=== PATIENT | female | born 1990 | race Caucasian/White ===

== ENCOUNTER 2016-08-29 15:19 | Inpatient (IN) | payer MEDICAID ==
[~2016-08-29] VITALS: Ht 157.5 cm; Wt 58.2 kg
[2016-08-29 16:09] LABS: HEMATOCRIT 40.9 % (36.0-48.0); HEMOGLOBIN 13.7 g/dL (12-16); MCH 30.9 pg (26.0-34.0); MCHC 33.5 g/dL (31.0-37.0); MCV 92.1 fL (80.0-100.0); MEAN PLATELET VOLUME 9.2 fL (7.4-10.4); PLATELET COUNT 455 10x3/uL (130-400); RBC 4.44 10x6/uL (4.00-5.40); RDW 13.9 % (11.5-14.5); WBC 25.3 10x3/uL (4.8-10.8)
[2016-08-29 16:32] LABS: ALBUMIN 3.9 g/dL (3.4-5.0); ALKALINE PHOSPHATASE 76 U/L (46-116); ALT (SGPT) 15 U/L (10-68); BILIRUBIN - TOTAL 0.32 mg/dL (0.2-1.3); CALC OSMOLALITY 285 mosm/kg (275-300); CALCIUM 9.1 mg/dL (8.5-10.1); CARBON DIOXIDE 21.1 mmol/L (21.0-32.0); CHLORIDE - SERUM 105 mmol/L (98-107); CREATININE - SERUM 0.8 mg/dL (0.6-1.3); POTASSIUM - SERUM 3.9 mmol/L (3.5-5.1); PROTEIN - SERUM 7.8 g/dL (6.4-8.2); SODIUM 142 mmol/L (136-145); UREA NITROGEN 10 mg/dL (7-18); eGFR NON AFRICAN AMERICAN > 90 mL/min (90-120)
[2016-08-29 16:33] LABS: GLUCOSE 177 mg/dL (74-106)
[2016-08-29 16:36] LABS: BASOPHILS 1 % (0.0-2.0); LYMPHOCYTES 7 % (15-50); MONOCYTES 1 % (2-11); NEUTROPHILS 89 % (40-80); PLATELET ESTIMATE INCREASED
[2016-08-29 16:38] LABS: AMYLASE - SERUM 51 U/L (25-115); LIPASE 92 U/L (73-393)
[2016-08-29 16:46] LABS: HCG SERUM NEGATIVE (NEGATIVE)
--- NOTE | 2016-08-29 18:50 | NUR ---
Patient Name: NARESH RICHARDSON Admission Status: ER Accout number: [id number] Admission Date: 08-29-2016 : 1990 Admission Diagnosis: Colitis Attending: CATERINA Current LOS: 1 Anticipated DC Date: 09-01-2016 Planned Disposition: Home or Self Care Primary Insurance: MEDICAID [place] Discharge Planning Comments: Cm met with patient to complete initial discharge planning assessment. Patient gave consent to complete assessment. Patient reports she lives home with her boyfriend. She is independent in her care at home. Patient plans to return to home at time of discharge. She is unsure of dc needs at this time. CM will continue to follow and assist with dc plan/needs. Bottle Booth Attendant: Danielle Irene RN, [facility] [phone] Is the patient Alert and Oriented? Yes 0 * How many steps to enter\exit or inside your home? Five 0 * PCP Dr. Castellon 0 * [place] [facility] [place] * Preadmission Environment Home with Family 0 * ADLs Independent 0 * Equipment None 0 * List name and contact numbers for known caregivers / representatives who currently or will assist patient after discharge: Osei coy - [phone] 0 * Community resources currently utilized None 0 * Additional services required to return to the preadmission environment? No 0 * Can the patient safely return to the preadmission environment? Yes 0 * Has this patient been hospitalized within the prior 30 days at any hospital? No
--- NOTE | 2016-08-29 20:20 | NUR ---
RECIEVED PT TO FLOOR FROM ED VIA WHEELCHAIR. PT IS ALERT AND ORIENTED AND ABLE TO VERBALIZE NEEDS. IV IS PATENT AND SALINE LOC AT THIS TIME. PT IS AMBULATORY BUT WAS INSTRUCTED TO CALL FOR ANY ASSISTANCE NEEDED. PT STATES PAIN IS 10/10. NO NEEDS ARE VERBALIZED AT THIS TIME. WILL CONTINUE TO MONITOR. PT IS ORIENTED TO ROOM AND USE OF CALL LIGHT. SIDE RAILS ARE UP X 2. BED IS IN LOWEST POSITION. CALL LIGHT IS WITHIN REACH.
[2016-08-29 21:00] VITALS: BP 140/88
--- NOTE | 2016-08-29 21:30 | NUR ---
ADMIT ASSESSMENT COMPLETED. IV FLUIDS HUNG PER ORDER. ANTIBIOTIC GIVEN PER ORDER. MORPHINE COMMERCIAL LOAN UNDERWRITER ALSO INITIATED AT THIS TIME FOR PAIN 04/05. NO FURTHER NEEDS AT THIS TIME. WILL MONITOR. SIDE RAILS X 2. BED LOW. CALL LIGHT IN REACH.
[2016-08-29] MEDS ORDERED: MELATONIN 3 MG1 TAB PO (23:24)
[2016-08-29] MEDS ORDERED: ZOFRAN ODT4 MG/UDTAB PO (23:25)
[2016-08-30 00:56] VITALS: BP 140/88; Ht 157.5 cm; Wt 58.2 kg
[2016-08-30 01:00] VITALS: BP 144/72
--- NOTE | 2016-08-30 01:50 | NUR ---
PT IV TO RIGHT AC ACCIDENTALLY PULLED OUT. D/C'D WITH CATHETER TIP INTACT. NEW IV RESITED TO LEFT AC X 3 ATTEMPTS. GOOD BLOOD RETURN. FLUSHES W/O DIFFICUTLY. FLUIDS AND COLOR DEPOSITING MACHINE TENDER HOOKED BACK UP PER ORDER. PT TOLERATED WELL. NO NEEDS VOICED. WILL MONITOR. SIDE RAILS X 2. BED LOW. CALL LIGHT IN REACH.
[2016-08-30 08:40] VITALS: BP 113/68
[2016-08-30 11:45] LABS: APPEARANCE HAZY (CLEAR); BILIRUBIN NEGATIVE (NEGATIVE); COLOR YELLOW (YELLOW); GLUCOSE 100 mg/dL (NEGATIVE); KETONE SMALL mg/dL (NEGATIVE); LEUKOCYTE ESTERASE NEGATIVE (NEGATIVE); NITRITE NEGATIVE (NEGATIVE); PROTEIN NEGATIVE (NEGATIVE); SPECIFIC GRAVITY 1.015 (1.005-1.020); UROBILINOGEN NORMAL (NORMAL)
[2016-08-30 11:51] LABS: UDS - AMPHET NEGATIVE QUAL (NEGATIVE); UDS - BARB POSITIVE QUAL (NEGATIVE); UDS - BENZO POSITIVE QUAL (NEGATIVE); UDS - COCAINE NEGATIVE QUAL (NEGATIVE); UDS - METH NEGATIVE QUAL (NEGATIVE); UDS - OPIATE POSITIVE QUAL (NEGATIVE); UDS - PCP NEGATIVE QUAL (NEGATIVE); UDS - THC POSITIVE QUAL (NEGATIVE)
[2016-08-30 12:23] VITALS: BP 114/71
[2016-08-30 12:38] LABS: BASOPHILS 0.1 % (0.0-2.0); EOSINOPHILS 0.1 % (0-7); HEMATOCRIT 36.4 % (36.0-48.0); HEMOGLOBIN 11.9 g/dL (12-16); IMMATURE GRANULOCYTES 0.3 % (0-5); LYMPHOCYTES 25.2 % (15-50); MCH 29.8 pg (26.0-34.0); MCHC 32.7 g/dL (31.0-37.0); MEAN PLATELET VOLUME 9.3 fL (7.4-10.4); MONOCYTES 7.5 % (2-11); NEUTROPHILS 66.8 % (40-80); PLATELET COUNT 374 10x3/uL (130-400); RDW 13.9 % (11.5-14.5)
[2016-08-30 12:41] LABS: WBC 13.7 10x3/uL (4.8-10.8)
[2016-08-30 13:14] LABS: ALBUMIN 3.3 g/dL (3.4-5.0); ALKALINE PHOSPHATASE 59 U/L (46-116); ALT (SGPT) 15 U/L (10-68); BILIRUBIN - TOTAL 0.55 mg/dL (0.2-1.3); CALC OSMOLALITY 282 mosm/kg (275-300); CALCIUM 8.8 mg/dL (8.5-10.1); CARBON DIOXIDE 24.4 mmol/L (21.0-32.0); CHLORIDE - SERUM 106 mmol/L (98-107); CREATININE - SERUM 0.9 mg/dL (0.6-1.3); GLUCOSE 126 mg/dL (74-106); POTASSIUM - SERUM 3.3 mmol/L (3.5-5.1); PROTEIN - SERUM 6.7 g/dL (6.4-8.2); SODIUM 142 mmol/L (136-145); UREA NITROGEN 8 mg/dL (7-18); eGFR NON AFRICAN AMERICAN 81 mL/min (90-120)
[2016-08-30 13:41] LABS: HEMOGLOBIN A1C 5.5 % (4.8-6.0)
[2016-08-30 16:38] VITALS: BP 111/59
[2016-08-30 21:00] VITALS: BP 107/52
[2016-08-31 01:00] VITALS: BP 115/66
--- NOTE | 2016-08-31 03:46 | NUR ---
PATIENT SITTING UP IN BED, WITH COMPLAINTS OF LOWER ABDOMINAL PAIN, 10/10 ON PAIN SCALE. PATIENT REPOSITIONED, WARM PACK APPLIED TO ABDOMIN, PAIN MEDICATION GIVEN. PATIENT 8/10 PAIN SCALE. BED LOW, SIDE RAILS UP, CONTINUE PLAN OF CARE, CONTINUE TO MONITOR.
[2016-08-31 05:00] VITALS: BP 110/65
[2016-08-31 06:24] LABS: BASOPHILS 0.3 % (0.0-2.0); HEMATOCRIT 35.7 % (36.0-48.0); HEMOGLOBIN 11.8 g/dL (12-16); IMMATURE GRANULOCYTES 0.3 % (0-5); LYMPHOCYTES 18.3 % (15-50); MCH 30.2 pg (26.0-34.0); MCHC 33.1 g/dL (31.0-37.0); MCV 91.3 fL (80.0-100.0); MEAN PLATELET VOLUME 8.9 fL (7.4-10.4); MONOCYTES 6.3 % (2-11); NEUTROPHILS 73.8 % (40-80); PLATELET COUNT 332 10x3/uL (130-400); RBC 3.91 10x6/uL (4.00-5.40); WBC 16.1 10x3/uL (4.8-10.8)
[2016-08-31 06:40] LABS: HCG SERUM NEGATIVE (NEGATIVE)
[2016-08-31 06:51] LABS: ALBUMIN 2.8 g/dL (3.4-5.0); ALKALINE PHOSPHATASE 50 U/L (46-116); ALT (SGPT) 15 U/L (10-68); BILIRUBIN - TOTAL 0.69 mg/dL (0.2-1.3); CALC OSMOLALITY 284 mosm/kg (275-300); CALCIUM 8.6 mg/dL (8.5-10.1); CARBON DIOXIDE 25.3 mmol/L (21.0-32.0); CHLORIDE - SERUM 110 mmol/L (98-107); CREATININE - SERUM 0.8 mg/dL (0.6-1.3); GLUCOSE 117 mg/dL (74-106); POTASSIUM - SERUM 3.1 mmol/L (3.5-5.1); PROTEIN - SERUM 6.2 g/dL (6.4-8.2); SODIUM 144 mmol/L (136-145); eGFR NON AFRICAN AMERICAN > 90 mL/min (90-120)
[2016-08-31 06:52] LABS: UREA NITROGEN 5 mg/dL (7-18)
--- NOTE | 2016-08-31 07:30 | NUR ---
QUIET IN ROOM AT PRESENT N/C VOICED AT PRESENT SPINNING LATHE OPERATOR /IV CONT AT 100CC/HR/IVAC.
[2016-08-31 08:06] LABS: ERYTHROCYTE SEDIMENTATION RATE 11 mm/hr (0-20)
[2016-08-31 08:13] VITALS: BP 109/53
--- NOTE | 2016-08-31 09:00 | NUR ---
MEDS GIVEN ZITA WELL AT PRESENT IV AND FOOD MIXER REPAIRER IN PROGRESS.
--- NOTE | 2016-08-31 10:00 | NUR ---
SHOWER TAKEN ZITA WELL AT PRESENT DENIES ANY NEEDS AT THIS TIME AT PRESENT.
--- NOTE | 2016-08-31 12:00 | NUR ---
AMB IN [facility] ZITA WELL AT PRESENT.
[2016-08-31 12:23] VITALS: BP 101/79
--- NOTE | 2016-08-31 14:46 | NUR ---
QUIET IN ROOM AT PRESENT DENIES ANY NEEDS AT THIS TIME QUIET.
[2016-08-31 15:28] VITALS: BP 104/60
--- NOTE | 2016-08-31 15:35 | NUR ---
QUIET IN ROOM AT PRESENT DENIES ANY NEEDS AT PRESENT.
--- NOTE | 2016-08-31 16:56 | NUR ---
STATUS REMAINS UNCHGD AT PRESENT FINANCIAL PLANNING ASSISTANT IN PROGRESS.
[2016-08-31 19:00] VITALS: BP 119/76
--- NOTE | 2016-08-31 20:00 | NUR ---
ASSESSMENT PER FLOWSHEET. IV PATENT LEFT AC OF D5LR AT 100CC'S/HR SITE CLEAR . PHOTOCOPY OPERATOR OF MORPHINE IN USE WITH SETTINGS AT 1MG Q10MIN W/10MG Q4H L/O DENIES NEES UP AD KORI IN HALLWAYS WITH FAMILY MEMBERS.
--- NOTE | 2016-08-31 21:00 | NUR ---
MEDS GIVEN PER MAR. DENIES NEEDS.
--- NOTE | 2016-09-01 | NUR ---
EYES CLOSED RESPIRATIONS WITH EASE AND UNLABORED.
--- NOTE | 2016-09-01 01:00 | NUR ---
MALE FRIEND AT BEDSIDE. DENIES NEEDS.
--- NOTE | 2016-09-01 02:24 | NUR ---
EYES CLOSED RESPIRATIONS WITH EASE AND UNLABORED.
[2016-09-01 04:00] VITALS: BP 113/70
--- NOTE | 2016-09-01 04:00 | NUR ---
EYES CLOSED RESPIRAIONS WITH EASE AND UNLABORED.
[2016-09-01 06:58] LABS: BASOPHILS 0.7 % (0.0-2.0); EOSINOPHILS 3.2 % (0-7); HEMATOCRIT 32.1 % (36.0-48.0); HEMOGLOBIN 10.5 g/dL (12-16); IMMATURE GRANULOCYTES 0.2 % (0-5); LYMPHOCYTES 50.6 % (15-50); MCHC 32.7 g/dL (31.0-37.0); MCV 91.7 fL (80.0-100.0); MEAN PLATELET VOLUME 9.3 fL (7.4-10.4); MONOCYTES 6.9 % (2-11); NEUTROPHILS 38.4 % (40-80); PLATELET COUNT 356 10x3/uL (130-400); RDW 13.9 % (11.5-14.5)
--- NOTE | 2016-09-01 06:58 | NUR ---
NO CHANGES IN ASSESSMENT.
[2016-09-01 07:06] LABS: ALBUMIN 2.6 g/dL (3.4-5.0); ALKALINE PHOSPHATASE 44 U/L (46-116); ALT (SGPT) 15 U/L (10-68); BILIRUBIN - TOTAL 0.42 mg/dL (0.2-1.3); CALC OSMOLALITY 282 mosm/kg (275-300); CALCIUM 8.1 mg/dL (8.5-10.1); CARBON DIOXIDE 26.2 mmol/L (21.0-32.0); CHLORIDE - SERUM 109 mmol/L (98-107); CREATININE - SERUM 0.7 mg/dL (0.6-1.3); GLUCOSE 105 mg/dL (74-106); PROTEIN - SERUM 5.8 g/dL (6.4-8.2); SODIUM 143 mmol/L (136-145); UREA NITROGEN 6 mg/dL (7-18); eGFR NON AFRICAN AMERICAN > 90 mL/min (90-120)
--- NOTE | 2016-09-01 07:22 | NUR ---
K+=3.0. POTASSIUM 40MEQ IN ORANGE JUICE GIVEN PO PER ELECTROLYTE PROTOCAL.
[2016-09-01 08:13] VITALS: BP 117/66
[2016-09-01] MEDS ORDERED: NICODERM C1 PATCH .2 TRANSDERM (09:50)
[2016-09-01] MEDS ORDERED: PROTONIX40 MG PO (09:51)
[2016-09-01] MEDS ORDERED: HYDROCODON-ACE1 EAC7 PO (09:52)
[2016-09-01] MEDS ORDERED: FLORAJEN3 CAPS460 MG PO (09:52)
[2016-09-01] MEDS ORDERED: LEVAQUIN750 MG PO (09:55)
[2016-09-01] MEDS ORDERED: FLAGYL500 MG PO (09:56)
--- NOTE | 2016-09-01 10:40 | NUR ---
CM REASSESSMENT NOTE: PATIENT IS DISCHARGING HOME TODAY. FRIEND AT BEDSIDE WILL DRIVE PATIENT HOME. PATIENT DENIES HOME HEALTH OR ANY OTHER NEEDS FOR DISCHARGE. CM WILL CONTINUE TO FOLLOW PATIENT WITH D/C NEEDS AND PLANS.
--- NOTE | 2016-09-01 13:02 | NUR ---
LEFT VIA W/C DISCHARGE INSTRUCTIONS GONE OVER WITHG PT DEMONSTRATES UNDERSTANDING AT PRESENT RX GIVEN AT PRESENT.
== END 2016-09-01 13:06 | disposition home or self-care (01) | DRG 103 ==
LOC: D.ER 15:19 → D.MS 18:14
PROVIDERS: Emergency Medicine; Family Medicine Adult Medicine; Internal Medicine Gastroenterology; ADMIT Emergency Medicine
DX: G43.A0 Cyclical vomiting, in migraine, not intractable (principal); F17.203 Nicotine dependence unspecified, with withdrawal; T40.7X5A Adverse effect of cannabis (derivatives), initial encounter; K52.9 Noninfective gastroenteritis and colitis, unspecified; E86.0 Dehydration; E83.42 Hypomagnesemia; E87.6 Hypokalemia; F12.90 Cannabis use, unspecified, uncomplicated

== ENCOUNTER 2017-01-18 13:20 | Emergency (ER) | payer MEDICAID ==
[2016-08-30 00:56] VITALS: BMI 23.4
[~2017-01-18 13:20] MED LIST: FLAGYL500 MG PO; FLORAJEN3 CAPS460 MG PO; HYDROCODON-ACE1 EAC7 PO; LEVAQUIN750 MG PO; MELATONIN 3 MG1 TAB PO; NICODERM C1 PATCH .2 TRANSDERM; PROTONIX40 MG PO; ZOFRAN ODT4 MG/UDTAB PO
[2017-01-18 13:47] LABS: BASOPHILS 0.4 % (0-2); EOSINOPHILS 0.6 % (0-7); HEMATOCRIT 44.2 % (36.0-48.0); HEMOGLOBIN 15.3 g/dL (12-16); IMMATURE GRANULOCYTES 0.2 % (0-5); LYMPHOCYTES 33.9 % (15-50); MCH 31.7 pg (26.0-34.0); MCHC 34.6 g/dL (31.0-37.0); MCV 91.7 fL (80.0-100.0); MONOCYTES 6.7 % (2-11); NEUTROPHILS 58.2 % (40-80); PLATELET COUNT 360 10x3/uL (130-400); RBC 4.82 10x6/uL (4.00-5.40); RDW 13.6 % (11.5-14.5); WBC 10.7 10x3/uL (4.8-10.8)
[2017-01-18 15:08] LABS: ALBUMIN 3.7 g/dL (3.4-5.0); ALKALINE PHOSPHATASE 49 U/L (46-116); ALT (SGPT) 14 U/L (10-68); AMYLASE - SERUM 35 U/L (25-115); BILIRUBIN - TOTAL 0.55 mg/dL (0.2-1.3); CALC OSMOLALITY 281 mosm/kg (275-300); CALCIUM 9.2 mg/dL (8.5-10.1); CARBON DIOXIDE 17.7 mmol/L (21.0-32.0); CHLORIDE - SERUM 108 mmol/L (98-107); CREATININE - SERUM 0.8 mg/dL (0.6-1.3); GLUCOSE 144 mg/dL (74-106); LIPASE 83 U/L (73-393); POTASSIUM - SERUM 3.8 mmol/L (3.5-5.1); PROTEIN - SERUM 7.2 g/dL (6.4-8.2); SODIUM 141 mmol/L (136-145); UREA NITROGEN 8 mg/dL (7-18); eGFR NON AFRICAN AMERICAN > 90 mL/min (90-120)
[2017-01-18 15:55] LABS: APPEARANCE CLEAR (CLEAR); BILIRUBIN NEGATIVE (NEGATIVE); COLOR YELLOW (YELLOW); GLUCOSE NEGATIVE (NEGATIVE); KETONE MODERATE mg/dL (NEGATIVE); LEUKOCYTE ESTERASE NEGATIVE (NEGATIVE); NITRITE NEGATIVE (NEGATIVE); PROTEIN TRACE mg/dL (NEGATIVE); SPECIFIC GRAVITY 1.025 (1.005-1.020); UROBILINOGEN NORMAL (NORMAL)
[2017-01-18 15:57] LABS: UDS - AMPHET NEGATIVE QUAL (NEGATIVE); UDS - BARB NEGATIVE QUAL (NEGATIVE); UDS - BENZO NEGATIVE QUAL (NEGATIVE); UDS - COCAINE NEGATIVE QUAL (NEGATIVE); UDS - METH NEGATIVE QUAL (NEGATIVE); UDS - OPIATE POSITIVE QUAL (NEGATIVE); UDS - PCP NEGATIVE QUAL (NEGATIVE); UDS - THC POSITIVE QUAL (NEGATIVE)
[2017-01-18 16:06] LABS: HCG URINE NEGATIVE (NEGATIVE)
== END 2017-01-18 17:29 | disposition home or self-care (01) ==
LOC: D.ER 13:20
PROVIDERS: Emergency Medicine; Nurse Practitioner Acute Care
DX: F12.10 Cannabis abuse, uncomplicated (principal); R11.10 Vomiting, unspecified; R19.7 Diarrhea, unspecified; R11.0 Nausea; F17.200 Nicotine dependence, unspecified, uncomplicated

== ENCOUNTER 2018-01-21 22:35 | Emergency (ER) | payer SELFPAY ==
[~2018-01-21] VITALS: Ht 157.5 cm; Wt 51.7 kg
[2018-01-21 22:43] VITALS: BP 138/87; Ht 157.5 cm; Wt 51.7 kg
[2018-01-21 23:20] LABS: HCG URINE NEGATIVE (NEGATIVE)
[2018-01-21] MEDS ORDERED: NORCO 7.5/325 T1 TA1 PO (23:49)
== END 2018-01-21 23:57 | disposition home or self-care (01) ==
LOC: D.ER 22:35
PROVIDERS: Family Medicine
DX: M54.5 Low back pain (principal); V43.62XA Car passenger injured in collision with other type car in traffic accident, initial encounter; Y93.89 Activity, other specified; Y92.410 Unspecified street and highway as the place of occurrence of the external cause; F17.200 Nicotine dependence, unspecified, uncomplicated; M79.672 Pain in left foot

== ENCOUNTER 2019-02-13 10:03 | Emergency (ER) | payer SELFPAY ==
[~2019-02-13] VITALS: Ht 157.5 cm; Wt 50.0 kg
[~2019-02-13 10:03] MED LIST changes: +NORCO 7.5/325 T1 TA1 PO
[2019-02-13 10:07] VITALS: Ht 157.5 cm; Wt 50.0 kg
[2019-02-13 10:31] LABS: BASOPHILS 0.3 % (0-2); EOSINOPHILS 0.6 % (0-7); HEMATOCRIT 42.5 % (36.0-48.0); IMMATURE GRANULOCYTES 0.2 % (0-5); MCH 32.5 pg (26.0-34.0); MCHC 35.3 g/dL (31.0-37.0); MEAN PLATELET VOLUME 9.3 fL (7.4-10.4); MONOCYTES 4.2 % (2-11); NEUTROPHILS 72.7 % (40-80); PLATELET COUNT 366 10x3/uL (130-400); RBC 4.62 10x6/uL (4.00-5.40); RDW 13.2 % (11.5-14.5); WBC 15.5 10x3/uL (4.8-10.8)
[2019-02-13 10:44] LABS: ALBUMIN 3.9 g/dL (3.4-5.0); ALKALINE PHOSPHATASE 68 U/L (46-116); ALT (SGPT) 20 U/L (10-68); BILIRUBIN - TOTAL 0.34 mg/dL (0.2-1.3); CALC OSMOLALITY 290 mosm/kg (275-300); CALCIUM 9.3 mg/dL (8.5-10.1); CARBON DIOXIDE 24.7 mmol/L (21.0-32.0); CHLORIDE - SERUM 109 mmol/L (98-107); GLUCOSE 168 mg/dL (74-106); POTASSIUM - SERUM 3.7 mmol/L (3.5-5.1); PROTEIN - SERUM 7.2 g/dL (6.4-8.2); SODIUM 144 mmol/L (136-145); UREA NITROGEN 13 mg/dL (7-18); eGFR NON AFRICAN AMERICAN 70 mL/min (90-120)
[2019-02-13 10:51] LABS: AMYLASE - SERUM 44 U/L (25-115); LIPASE 123 U/L (73-393)
[2019-02-13 10:54] LABS: TROPONIN-I < 0.017 ng/mL (0.000-0.060)
[2019-02-13 11:09] LABS: UDS - AMPHET NEGATIVE QUAL (NEGATIVE); UDS - BARB NEGATIVE QUAL (NEGATIVE); UDS - BENZO NEGATIVE QUAL (NEGATIVE); UDS - COCAINE NEGATIVE QUAL (NEGATIVE); UDS - OPIATE POSITIVE QUAL (NEGATIVE); UDS - PCP NEGATIVE QUAL (NEGATIVE); UDS - THC POSITIVE QUAL (NEGATIVE)
[2019-02-13 11:37] LABS: APPEARANCE HAZY (CLEAR); BACTERIA FEW /hpf (NONE SEEN); BILIRUBIN NEGATIVE (NEGATIVE); COLOR YELLOW (YELLOW); GLUCOSE NEGATIVE (NEGATIVE); KETONE SMALL mg/dL (NEGATIVE); NITRITE NEGATIVE (NEGATIVE); PROTEIN NEGATIVE (NEGATIVE); RED CELLS - URINE OCC /hpf (0-5); SPECIFIC GRAVITY 1.025 (1.005-1.020); UROBILINOGEN NORMAL (NORMAL); WHITE CELLS - URINE OCC /hpf (0-5)
[2019-02-13 11:38] LABS: AMORPHOUS SEDIMENT <1+ /lpf (NONE SEEN); EPITHELIAL CELLS OCC /hpf (0-5); MUCUS <1+ /lpf (NONE SEEN)
[2019-02-13 13:17] LABS: HCG URINE NEGATIVE (NEGATIVE)
[2019-02-13] MEDS ORDERED: BENTYL 20 MG TA20 MG PO (13:31)
[2019-02-13] MEDS ORDERED: ZOFRAN ODT4 MG/UDTAB PO (13:31)
[2019-02-13 14:37] VITALS: BP 128/66
== END 2019-02-13 14:39 | disposition home or self-care (01) ==
LOC: D.ER 10:03
PROVIDERS: Family Medicine
DX: B34.9 Viral infection, unspecified (principal); R11.2 Nausea with vomiting, unspecified

== ENCOUNTER 2019-02-14 11:10 | Inpatient (IN) | payer MEDICAID ==
[~2019-02-14] VITALS: Ht 157.5 cm; Wt 54.4 kg
[~2019-02-14 11:10] MED LIST changes: +BENTYL 20 MG TA20 MG PO
[2019-02-14 12:24] LABS: ALBUMIN 4.1 g/dL (3.4-5.0); ALKALINE PHOSPHATASE 58 U/L (46-116); BILIRUBIN - TOTAL 0.62 mg/dL (0.2-1.3); CALCIUM 10.2 mg/dL (8.5-10.1); CARBON DIOXIDE 23.9 mmol/L (21.0-32.0); CHLORIDE - SERUM 106 mmol/L (98-107); CREATININE - SERUM 0.9 mg/dL (0.6-1.3); GLUCOSE 146 mg/dL (74-106); POTASSIUM - SERUM 3.5 mmol/L (3.5-5.1); PROTEIN - SERUM 7.5 g/dL (6.4-8.2); SODIUM 141 mmol/L (136-145); eGFR NON AFRICAN AMERICAN 80 mL/min (90-120)
[2019-02-14 12:26] LABS: ALT (SGPT) 27 U/L (10-68); CALC OSMOLALITY 285 mosm/kg (275-300); UREA NITROGEN 18 mg/dL (7-18)
[2019-02-14 12:28] LABS: BASOPHILS 0.1 % (0-2); EOSINOPHILS 0 % (0-7); HEMATOCRIT 40.5 % (36.0-48.0); HEMOGLOBIN 14.2 g/dL (12-16); IMMATURE GRANULOCYTES 0.4 % (0-5); LIPASE 68 U/L (73-393); LYMPHOCYTES 15.5 % (15-50); MCH 32.1 pg (26.0-34.0); MCHC 35.1 g/dL (31.0-37.0); MCV 91.4 fL (80.0-100.0); MEAN PLATELET VOLUME 9.2 fL (7.4-10.4); MONOCYTES 6.5 % (2-11); NEUTROPHILS 77.5 % (40-80); PLATELET COUNT 334 10x3/uL (130-400); RBC 4.43 10x6/uL (4.00-5.40); RDW 13.5 % (11.5-14.5); WBC 18.7 10x3/uL (4.8-10.8)
[2019-02-14 12:29] LABS: AMYLASE - SERUM 29 U/L (25-115); TROPONIN-I < 0.017 ng/mL (0.000-0.060)
[2019-02-14 13:10] LABS: APPEARANCE TURBID (CLEAR); BILIRUBIN NEGATIVE (NEGATIVE); COLOR YELLOW (YELLOW); GLUCOSE NEGATIVE (NEGATIVE); KETONE MODERATE mg/dL (NEGATIVE); NITRITE POSITIVE (NEGATIVE); PROTEIN 1+ mg/dL (NEGATIVE); SPECIFIC GRAVITY 1.025 (1.005-1.020); UROBILINOGEN NORMAL (NORMAL)
[2019-02-14 13:11] LABS: AMORPHOUS SEDIMENT >1+ /lpf (NONE SEEN); BACTERIA MANY /hpf (NONE SEEN); EPITHELIAL CELLS 0-5 /hpf (0-5); MUCUS <1+ /lpf (NONE SEEN); RED CELLS - URINE RARE /hpf (0-5); WHITE CELLS - URINE OCC /hpf (0-5)
[2019-02-14 15:07] LABS: HCG URINE NEGATIVE (NEGATIVE)
[2019-02-14 15:23] VITALS: BP 145/88
--- NOTE | 2019-02-14 17:00 | NUR ---
NEW PATIENT ADMIT FROM ER VIA HOSPITAL BED AND HOSPITAL STAFF. PATIENT IS AWAKE AND LETHARGIC. IV TO LT AC. WILL CONTINUE WITH PLAN OF CARE.
[2019-02-14 18:39] VITALS: BP 123/83; BMI 22.0
--- NOTE | 2019-02-14 19:45 | NUR ---
PT ALERT AND ORIENTED X4 LAYING IN BED. PT LETHARGIC AND COMPLAINS OF PAIN IN ABDOMEN. PT IS ON SHREDDING FLOOR EQUIPMENT OPERATOR AT THIS TIME. HEATING PAD PLACED ON PT. VITALS STABLE, BED LOW, CALL LIGHT WITHIN REACH. WILL CONTINUE TO MONITOR.
--- NOTE | 2019-02-15 00:09 | NUR ---
PT RESTING IN BEDS WITH EYES CLOSE. RR EVEN AND UNLABORED. NO S/S OF DISTRESS AT THIS TIME. BED LOW CALL LIGHT WITHIN REACH, WILL CONTINUE TO MONITOR.
--- NOTE | 2019-02-15 00:35 | NUR ---
AGAIN CRYING IN PAIN, REQUESTING DEMEROL, EXPLAINED THAT IF GET IT NOW WOULD NOT BE ABLE TO HAVE ANYTHING ELSE UNTIL 0 STATES I DONT CARE NEED SOMETHING NOW DEMEROL GIVEN ORDERED
[2019-02-15 06:10] LABS: BASOPHILS 0.3 % (0-2); EOSINOPHILS 0.3 % (0-7); HEMATOCRIT 37.3 % (36.0-48.0); HEMOGLOBIN 12.8 g/dL (12-16); IMMATURE GRANULOCYTES 0.2 % (0-5); LYMPHOCYTES 30.3 % (15-50); MCH 31.1 pg (26.0-34.0); MCHC 34.3 g/dL (31.0-37.0); MCV 90.5 fL (80.0-100.0); MEAN PLATELET VOLUME 9.2 fL (7.4-10.4); NEUTROPHILS 61.9 % (40-80); PLATELET COUNT 284 10x3/uL (130-400); RBC 4.12 10x6/uL (4.00-5.40); RDW 13.1 % (11.5-14.5)
--- NOTE | 2019-02-15 06:12 | NUR ---
I have reviewed this patient and I concur with the Shift Assessment completed by the Licensed Practical Nurse today this shift.
[2019-02-15 06:19] LABS: WBC 11.9 10x3/uL (4.8-10.8)
[2019-02-15 06:39] LABS: ALBUMIN 3.3 g/dL (3.4-5.0); ALKALINE PHOSPHATASE 50 U/L (46-116); ALT (SGPT) 29 U/L (10-68); BILIRUBIN - TOTAL 0.47 mg/dL (0.2-1.3); CALC OSMOLALITY 279 mosm/kg (275-300); CALCIUM 8.5 mg/dL (8.5-10.1); CARBON DIOXIDE 27.9 mmol/L (21.0-32.0); CHLORIDE - SERUM 104 mmol/L (98-107); GLUCOSE 115 mg/dL (74-106); POTASSIUM - SERUM 3.8 mmol/L (3.5-5.1); PROTEIN - SERUM 6.2 g/dL (6.4-8.2); SODIUM 139 mmol/L (136-145); UREA NITROGEN 15 mg/dL (7-18)
[2019-02-15 06:42] LABS: CREATININE - SERUM 0.6 mg/dL (0.6-1.3); eGFR NON AFRICAN AMERICAN > 90 mL/min (90-120)
--- NOTE | 2019-02-15 07:30 | NUR ---
A/A/OX4. NO REQUESTS AT PRESENT TIME. ASSESSMENT COMPLETED AND WILL CONTINUE POC.
[2019-02-15 08:25] VITALS: BP 102/59
[2019-02-15 11:33] VITALS: BP 137/74
[2019-02-15 13:01] VITALS: Ht 157.5 cm; Wt 54.4 kg
[2019-02-15 14:51] VITALS: BP 109/62
--- NOTE | 2019-02-15 17:14 | NUR ---
LEIF NEEDS OR C/O AT THIS TIME. CALL LIGHT IN REACH. WILL MONITOR.
[2019-02-15 17:16] LABS: UDS - AMPHET NEGATIVE QUAL (NEGATIVE); UDS - BARB NEGATIVE QUAL (NEGATIVE); UDS - BENZO NEGATIVE QUAL (NEGATIVE); UDS - COCAINE NEGATIVE QUAL (NEGATIVE); UDS - OPIATE POSITIVE QUAL (NEGATIVE); UDS - PCP NEGATIVE QUAL (NEGATIVE); UDS - THC POSITIVE QUAL (NEGATIVE)
--- NOTE | 2019-02-15 18:08 | NUR ---
PT HAS COMPLAINED OF CONTINUED PAIN THROUGHOUT THE DAY. DILAUDID HAS BEEN DC'D AND HAS BEEN GIVEN TORODOL AND DEMEROL. STATES AT PRESENT TIME HER PAIN IN ABOUT A 6. HAD N/V WITH GREEN EMESIS EARLIER IN THE DAY BUT IMPROVED WITH ZOFRAN AND IS NOW SIPPING AND KEEPING DOWN LEMONLIME SODA. NO REQUESTS AT PRESENT TIME.
--- NOTE | 2019-02-15 20:00 | NUR ---
ALERT SITTING UP IN BED C/O SEVERE ABD PAIN, INSTRUCTED THAT WOULD GIVE PAIN MEDICATION SOON ITS TIME, SEE SHIFT ASSESSMENT, CALL LIGHT IN REEACH
[2019-02-15 20:27] VITALS: BP 125/65
--- NOTE | 2019-02-15 20:30 | NUR ---
DEMEROL GIVEN ORDERED FOR PAIN
--- NOTE | 2019-02-15 21:40 | NUR ---
N/V ZOFRAN GIVEN, CONTINUES TO C/O ABD PAIN REQUESTIGN TORODOL, INSTRUCTED ROSA HAD ONLY BEEN AN HOUR SINCE DEMEROL NEED TO SPACE PAIN OUT MORE, WILL MONITOR
--- NOTE | 2019-02-15 22:20 | NUR ---
UP TO SHOWER AFTER RECIEVING BAILEYRICHARD NOW CRYING WITH SEVERE ABD PAIN REQUESTING TORODOL, GIVEN ORDERED
--- NOTE | 2019-02-15 23:15 | NUR ---
CRYING IN PAIN STATES GOT TO CALL SOMEBODY AND GET ME SOMETHING, REFUSED TO LAY IN BED UP AMBULATING TO NURSING STATION CRYING, PADDY MATOS REPORTED PAIN UNRELIEVED WITH CURRENT MEDS, ORDER RECIEVED FOR ONE TIME DOSE OF MORPHINE 2MG IV, GIVEN ORDERED
[2019-02-16 00:27] VITALS: BP 174/85
--- NOTE | 2019-02-16 03:20 | NUR ---
I have reviewed this patient and I concur with the Shift Assessment completed by the Licensed Practical Nurse today this shift.
[2019-02-16 04:19] VITALS: BP 129/82
--- NOTE | 2019-02-16 08:00 | NUR ---
SITTING ON SHOWER CHAIR IN SHOWER AND REQUESTING PAIN MED. INFORMED PT WOULD NOT ADMINISTER MED WHILE SHE IS IN THE SHOWER AND WHEN SHE DECIDES TO GET BACK IN BED I WOULD GIVE IT TO HER.
--- NOTE | 2019-02-16 08:30 | NUR ---
BACK IN BED AND REQUESTING PAIN MED AND ALSO SOMETHING FOR NAUSEA. STATES SHE VOMITED IN SHOWER BUT NONE WAS OBSERVED. MEDICATION GIVEN AND IV RECONNECTED AT KVO RATE. ASSESSMENT COMPLETED AND WILL CONTINUE POC. BED IN LOW LOCKED POSITION AND CALL LIGHT IN REACH.
[2019-02-16 09:52] LABS: BASOPHILS 0.2 % (0-2); EOSINOPHILS 0.2 % (0-7); HEMATOCRIT 37.5 % (36.0-48.0); HEMOGLOBIN 13.2 g/dL (12-16); IMMATURE GRANULOCYTES 0.4 % (0-5); MCH 31.6 pg (26.0-34.0); MCHC 35.2 g/dL (31.0-37.0); MCV 89.7 fL (80.0-100.0); MONOCYTES 8.8 % (2-11); NEUTROPHILS 64.4 % (40-80); PLATELET COUNT 268 10x3/uL (130-400); RBC 4.18 10x6/uL (4.00-5.40); RDW 12.7 % (11.5-14.5); WBC 10.9 10x3/uL (4.8-10.8)
[2019-02-16 09:58] LABS: ALBUMIN 3.5 g/dL (3.4-5.0); ALKALINE PHOSPHATASE 49 U/L (46-116); ALT (SGPT) 29 U/L (10-68); BILIRUBIN - TOTAL 0.45 mg/dL (0.2-1.3); CALC OSMOLALITY 275 mosm/kg (275-300); CALCIUM 8.7 mg/dL (8.5-10.1); CARBON DIOXIDE 22.7 mmol/L (21.0-32.0); CHLORIDE - SERUM 102 mmol/L (98-107); CREATININE - SERUM 0.7 mg/dL (0.6-1.3); GLUCOSE 123 mg/dL (74-106); POTASSIUM - SERUM 3.6 mmol/L (3.5-5.1); PROTEIN - SERUM 6.4 g/dL (6.4-8.2); SODIUM 137 mmol/L (136-145); UREA NITROGEN 16 mg/dL (7-18); eGFR NON AFRICAN AMERICAN > 90 mL/min (90-120)
--- NOTE | 2019-02-16 10:51 | NUR ---
I have reviewed this patient and I concur with the Shift Assessment completed by the Licensed Practical Nurse today this shift.
[2019-02-16 11:34] VITALS: BP 126/74
[2019-02-16] MEDS ORDERED: HYDROCODONE-A1 UDTA2 PO (13:57)
[2019-02-16] MEDS ORDERED: LEVAQUIN750 MG PO (13:58)
[2019-02-16] MEDS ORDERED: SULFAMETHOXAZOL1 TA2 PO (13:59)
--- NOTE | 2019-02-16 15:18 | NUR ---
DISCHARGE INSTRUCTIONS REVIEWED WITH PT AND VERBALIZES UNDERSTANDING. PRESCRIPTION GIVEN FOR PAIN MED AND ANTIBIOTICS. IV DC'D LEFT AC WITH CATH TIP INTACT. LEFT FLOOR VIA W/C WITH ALL PERSONAL BELONGINGS AND LEFT FACILITY VIA PRIVATE VEHICLE WITH HER UNCLE.
--- NOTE | 2019-02-16 15:57 | MORECARE ---
CASE MANAGEMENT DISCHARGE SUMMARY PATIENT: NARESH RICHARDSON UNIT: [id number] ADM DATE: 02/14/19 AGE: 28 : [birth year] SEX: F ROOM/BED: D.2136 AUTHOR: TYREE RUBIN PHYSICIAN: REFERRING PHYSICIAN: BERNICE NGUYEN DO DATE OF SERVICE: 02/16/19 Discharge Plan Patient Name: NARESH RICHARDSON Facility: [facility]:[place] : 1990 Planned Disposition: Home Anticipated Discharge Date: 02/16/19 Discharge Date: 02/16/2019 Expected LOS: 2 Initial Reviewer: [email or web address] Initial Review Date: 02/16/2019 Generated: 02/16/19 4:57 pm Patient Name: NARESH RICHARDSON Page [id number] at 1557 All edits/amendments must be made on the electronic document DICTATION DATE: 02/16/19 1557 GENETIC ENGINEER: MOLLY 02/16/19 1557 RPT#: [id number] DC DATE:02/16/19 STATUS: DIS IN [facility] [address] [place] [address] END OF REPORT
--- NOTE | 2019-02-16 16:12 | MORECARE ---
CASE MANAGEMENT DISCHARGE SUMMARY PATIENT: NARESH RICHARDSON UNIT: [id number] ADM DATE: 02/14/19 AGE: 28 : [birth year] SEX: F ROOM/BED: D.2136 AUTHOR: TYREE RUBIN PHYSICIAN: REFERRING PHYSICIAN: BERNICE NGUYEN DO DATE OF SERVICE: 02/16/19 Discharge Plan Patient Name: NARESH RICHARDSON Facility: [facility]:[place] : 1990 Planned Disposition: Home Anticipated Discharge Date: 02/16/19 Discharge Date: 02/16/2019 Expected LOS: 2 Initial Reviewer: [email or web address] Initial Review Date: 02/16/2019 Generated: 02/16/19 5:11 pm DCPIA - Discharge Planning Initial Assessment Updated by [email or web address]: Sergio Paredes on 02/16/19 4:06 pm * Is the patient Alert and Oriented? Yes * How many steps to enter\exit or inside your home? 5 OR MORE * PCP NONE * Pharmacy [facility] * Preadmission Environment Home with Family * ADLs Independent * Equipment None * Other Equipment NO MEDICAL EQUIPMENT PROVIDER PREFERENCE * List name and contact numbers for known caregivers / representatives who currently or will assist patient after discharge: SCOT CARR, SPOUSE, LARY CARR, MOTHER IN LAW, * Verbal permission to speak to the caregivers and representatives has been obtained from the patient. Yes * Community resources currently utilized None * Please name any agencies selected above. NONE * Additional services required to return to the preadmission environment? No * Can the patient safely return to the preadmission environment? Yes * Has this patient been hospitalized within the prior 30 days at any hospital? No Last DP export: 02/16/19 2:57 p Patient Name: NARESH RICHARDSON Page [id number] at 1612 All edits/amendments must be made on the electronic document DICTATION DATE: 02/16/191610 DYNAMOMETER MECHANIC: MOLLY 02/16/19 1611 RPT#: [id number] DC DATE:02/16/19 STATUS: DIS IN [facility] [address] [place] [address] END OF REPORT
--- NOTE | 2019-02-16 16:20 | MORECARE ---
CASE MANAGEMENT DISCHARGE SUMMARY PATIENT: NARESH RICHARDSON UNIT: [id number] ADM DATE: 02/14/19 AGE: 28 : [birth year] SEX: F ROOM/BED: D.2136 AUTHOR: CARYN,DOC PHYSICIAN: REFERRING PHYSICIAN: BERNICE NGUYEN DO DATE OF SERVICE: 02/16/19 Discharge Plan Patient Name: NARESH RICHARDSON Facility: [facility]:[place] : 1990 Planned Disposition: Home Anticipated Discharge Date: 02/16/19 Discharge Date: 02/16/2019 Expected LOS: 2 Initial Reviewer: [email or web address] Initial Review Date: 02/16/2019 Generated: 02/16/19 5:20 pm Comments DCP- Discharge Planning Updated by [email or web address]: Sergio Paredes on 02/16/19 3:[address] Patient Name: NARESH RICHARDSON Admission Status: ER Accout number: [id number] Admission Date: 02-14-2019 : 1990 Admission Diagnosis:ACUTE PYELONEPHRITIS Attending: BERNICE NGUYEN Current LOS: 2 Anticipated DC Date: 02-16-2019 Planned Disposition: Home Primary Insurance: MEDICAID [place] PENDING Discharge Planning Comments: CM MET WITH PT IN ROOM TO DISCUSS DISCHARGE PLANNING AND NEEDS. PT REPORTS LIVING AT HOME INDEPENDENTLY WITH HER FIANCE AND CHILDREN. PT REPORTS IF SHE NEEDS HELP GETTING IN AND OUT OF THE BATHTUB, HER UNCLE ASSISTS. PT HAS NO MEDICAL EQUIPMENT AND NO OUTSIDE SERVICES ASSISTING IN THE HOME. CM DISCUSSED AVAILABILITY OF HOME HEALTH, REHAB SERVICES AND MEDICAL EQUIPMENT. PT DENIES DISCHARGE NEEDS, REPORTS HER UNCLE WILL PICK HER UP FOR DISCHARGE HOME. On Line Csr: Sergio Paredes DCPIA - Discharge Planning Initial Assessment Updated by [email or web address]: Sergio Paredes on 02/16/19 4:06 pm * Is the patient Alert and Oriented? Yes * How many steps to enter\exit or inside your home? 5 OR MORE * PCP NONE * Pharmacy [facility] * Preadmission Environment Home with Family * ADLs Independent * Equipment None * Other Equipment NO MEDICAL EQUIPMENT PROVIDER PREFERENCE * List name and contact numbers for known caregivers / representatives who currently or will assist patient after discharge: SCOT CARR, SPOUSE, LARY CARR, MOTHER IN LAW, * Verbal permission to speak to the caregivers and representatives has been obtained from the patient. Yes * Community resources currently utilized None * Please name any agencies selected above. NONE * Additional services required to return to the preadmission environment? No * Can the patient safely return to the preadmission environment? Yes * Has this patient been hospitalized within the prior 30 days at any hospital? No Last DP export: 02/16/19 3:12 p Patient Name: NARESH RICHARDSON Page [id number] at 1620 All edits/amendments must be made on the electronic document DICTATION DATE: 02/16/191619 ACCOUNTS PAYABLE ANALYST: MOLLY 02/16/191619 RPT#: [id number] DC DATE:02/16/19 STATUS: DIS IN [facility] [address] [place] [address] END OF REPORT
== END 2019-02-16 15:20 | disposition home or self-care (01) | DRG 690 ==
LOC: D.ER 11:10 → D.M2 15:23
PROVIDERS: Family Medicine; ADMIT Family Medicine; ATTEND Family Medicine
DX: N10 Acute pyelonephritis (principal); F17.213 Nicotine dependence, cigarettes, with withdrawal; E86.0 Dehydration; B96.20 Unspecified Escherichia coli [E. coli] as the cause of diseases classified elsewhere